=== PATIENT | female | born 1990 | race African-American/Black ===

== ENCOUNTER 2018-01-26 04:26 | Emergency (ER) | payer MEDICAID, OTHER ==
[~2018-01-26] VITALS: Ht 160 cm; Wt 90.9 kg
[2018-01-26 04:58] LABS: GLUCOSE,POINT OF CARE 117 MG/DL (70-110)
[2018-01-26 05:55] LABS: AMPHET/METH SCREEN,URINE NEGATIVE (NEGATIVE); BARBITURATE SCREEN, URINE NEGATIVE (NEGATIVE); BENZODIAZEPINES SCREEN,URINE NEGATIVE (NEGATIVE); CANNABINOID SCREEN,URINE POSITIVE (NEGATIVE); COCAINE SCREEN,URINE NEGATIVE (NEGATIVE); METHADONE SCREEN, URINE NEGATIVE (NEGATIVE); OPIATE SCREEN,URINE NEGATIVE (NEGATIVE); PHENCYCLIDINE SCREEN,URINE NEGATIVE (NEGATIVE)
[2018-01-26] MEDS ORDERED: SODIUM CHLORIDE 0.9% 1,000 ML IV ONE (08:00)
[2018-01-26 08:33] LABS: BASOPHILS % (AUTO) 0.9 % (0.0-2.0); EOSINOPHILS % (AUTO) 0.1 % (1.0-6.0); HEMATOCRIT 40.1 % (36-46); HEMOGLOBIN 13.2 g/dL (12.0-16.0); LYMPHOCYTES # (AUTO) 1.6 K/uL (1.0-4.8); LYMPHOCYTES % (AUTO) 22.6 % (22.0-44.0); MEAN CORPUSCULAR HEMOGLOBIN 27.5 pg (26.0-34.0); MEAN CORPUSCULAR VOLUME 83 fL (80-100); MONOCYTES # (AUTO) 0.3 K/uL (0.1-1.0); MONOCYTES % (AUTO) 5.1 % (2.0-9.0); NEUTROPHILS # (AUTO) 4.9 K/uL (1.8-7.7); NEUTROPHILS % (AUTO) 71.3 % (40.0-70.0); PLATELET COUNT (AUTO) 316 K/uL (150-450); RED BLOOD CELL COUNT(AUTO) 4.82 MIL/uL (4.00-5.20); RED CELL DISTRIBUTION WIDTH 14.3 % (11.5-14.5)
[2018-01-26 08:42] LABS: ANION GAP 11 mmol/L (8-16); CALCIUM, TOTAL 9.4 mg/dL (8.8-10.5); CARBON DIOXIDE 25 mmol/L (22-29); CHLORIDE 105 mmol/L (98-107); CREATININE 0.63 mg/dL (0.60-1.30); GLOMERULAR FILTR. RATE CALC > 60 mL/min (>60); GLUCOSE,RANDOM 102 mg/dL (70-110); POTASSIUM 4.5 mmol/L (3.5-5.1); SODIUM SERUM 141 mmol/L (136-145); UREA NITROGEN, BLOOD 9 mg/dL (7-18)
[2018-01-26 08:48] LABS: ALANINE AMINOTRANSFERASE 25 U/L (12-78); ALKALINE PHOSPHATASE 74 U/L (46-116); ASPARTATE AMINOTRANSFERASE 19 U/L (15-37); BILIRUBIN,TOTAL 0.4 mg/dL (0.1-1.0); TOTAL PROTEIN, SERUM 7.3 g/dL (6.4-8.2)
[2018-01-26] MEDS ORDERED: LORazepam 2 MG/ML VIAL IVP ONE (09:30)
[2018-01-26] MEDS ORDERED: KETOROLAC TROMETHAMINE 30 MG/ML VIAL IVP ONE (09:30)
[2018-01-26 12:00] VITALS: BP 118/72
== END 2018-01-26 12:10 | disposition home or self-care (01) ==
LOC: EMS 04:27
DX: F41.9 Anxiety disorder, unspecified (principal)
CPT/HCPCS: 36415; 80053; 80307; 82962; 84484; 85025; 85379; 96361; 96374; 96375; 99284; J1885; J2060; J7030

== ENCOUNTER 2018-01-26 18:32 | Emergency (ER) | payer MEDICAID ==
[~2018-01-26] VITALS: Ht 160 cm; Wt 86.0 kg
[2018-01-26] MEDS ORDERED: PB/HYOSCY/ATR/SCOP/LIDO/MAALOX 55 ML BOTTLE PO ONE (19:15)
[2018-01-26] MEDS ORDERED: ONDANSETRON HCL 4 MG TABLET PO ONE (19:45)
[2018-01-26 20:59] VITALS: BP 128/89
== END 2018-01-26 20:55 | disposition home or self-care (01) ==
LOC: EMS 18:33
DX: K21.9 Gastro-esophageal reflux disease without esophagitis (principal); R07.9 Chest pain, unspecified
CPT/HCPCS: 93005; 99283; Q0162; Z7610

== ENCOUNTER 2018-01-27 23:03 | Emergency (ER) | payer MEDICAID ==
[~2018-01-27] VITALS: Ht 152.4 cm; Wt 86.4 kg
[2018-01-28] MEDS ORDERED: IBUPROFEN 600 MG TABLET PO ONE (01:45)
[2018-01-28 01:56] VITALS: BP 129/83
== END 2018-01-28 02:04 | disposition home or self-care (01) ==
LOC: EMS 23:04
DX: R07.9 Chest pain, unspecified (principal); F41.9 Anxiety disorder, unspecified
CPT/HCPCS: 93005; 99284

== ENCOUNTER 2018-01-31 18:02 | Inpatient (IN) | payer MEDICAID ==
[~2018-01-31] VITALS: Ht 160 cm; Wt 108.7 kg
[2018-01-31] MEDS ORDERED: BACL10TA PO (18:26)
[2018-01-31] MEDS ORDERED: RANI300T4 PO (18:26)
[2018-01-31] MEDS ORDERED: PANT40TA25 PO (18:26)
[2018-01-31] MEDS ORDERED: HYD50 PO (18:26)
[2018-01-31] MEDS ORDERED: ATEN25TA PO (18:26)
[2018-01-31] MEDS ORDERED: ASPIRIN 81 MG CHEWABLE TABLET PO ONE (18:45)
[2018-01-31] MEDS ORDERED: NITROGLYCERIN 2% (1 GM=INCH) PACKET TP ONE (18:45)
[2018-01-31 19:22] LABS: BASOPHILS % (AUTO) 1.1 % (0.0-2.0); EOSINOPHILS % (AUTO) 1.9 % (1.0-6.0); HEMATOCRIT 42.8 % (36-46); HEMOGLOBIN 14.3 g/dL (12.0-16.0); LYMPHOCYTES # (AUTO) 2.3 K/uL (1.0-4.8); LYMPHOCYTES % (AUTO) 37.1 % (22.0-44.0); MEAN CORPUSCULAR HEMOGLOBIN 27.8 pg (26.0-34.0); MEAN CORPUSCULAR HGB CONC 33.3 G/dL (31.0-37.0); MEAN CORPUSCULAR VOLUME 83 fL (80-100); MONOCYTES # (AUTO) 0.6 K/uL (0.1-1.0); MONOCYTES % (AUTO) 9.8 % (2.0-9.0); NEUTROPHILS # (AUTO) 3.1 K/uL (1.8-7.7); NEUTROPHILS % (AUTO) 50.1 % (40.0-70.0); PLATELET COUNT (AUTO) 317 K/uL (150-450); RED BLOOD CELL COUNT(AUTO) 5.14 MIL/uL (4.00-5.20); RED CELL DISTRIBUTION WIDTH 14.3 % (11.5-14.5)
[2018-01-31 19:29] LABS: ANION GAP 13 mmol/L (8-16); CALCIUM, TOTAL 9.8 mg/dL (8.8-10.5); CARBON DIOXIDE 25 mmol/L (22-29); CHLORIDE 102 mmol/L (98-107); CREATININE 0.72 mg/dL (0.60-1.30); GLOMERULAR FILTR. RATE CALC > 60 mL/min (>60); GLUCOSE,RANDOM 86 mg/dL (70-110); SODIUM SERUM 140 mmol/L (136-145); UREA NITROGEN, BLOOD 13 mg/dL (7-18)
[2018-01-31 19:53] LABS: ALANINE AMINOTRANSFERASE 25 U/L (12-78); ALBUMIN 4.1 g/dL (3.4-5.0); ALKALINE PHOSPHATASE 80 U/L (46-116); ASPARTATE AMINOTRANSFERASE 18 U/L (15-37); BILIRUBIN,TOTAL 0.4 mg/dL (0.1-1.0); CREATINE KINASE MB 1.3 ng/mL (0-5); CREATINE KINASE, TOTAL 217 U/L (26-192); TOTAL PROTEIN, SERUM 7.7 g/dL (6.4-8.2)
[2018-01-31 19:55] LABS: B-TYPE NATRIURETIC PEPTIDE < 5 pg/mL (0-100)
[2018-01-31] MEDS ORDERED: ONDANSETRON HCL 4 MG/2 ML VIAL IVP PRN (20:00)
[2018-01-31 21:08] VITALS: BP 114/49
[2018-01-31] MEDS: ACETAMINOPHEN 325 MG TABLET PO PRN (21:20)
[2018-01-31] MEDS ORDERED: INFLUENZA VIRUS VACCINE QVS 2017-18 (3YR+)/PF 60 MCG/0.5 ML SYRINGE IM ONE (22:45)
[2018-02-01 00:19] VITALS: BP 101/55
[2018-02-01] MEDS: ACETAMINOPHEN 325 MG TABLET PO PRN (01:10)
[2018-02-01 04:36] VITALS: BP 103/58
[2018-02-01 07:38] VITALS: BP 110/66
== END 2018-02-01 07:30 | disposition left against medical advice (07) | DRG 203 ==
LOC: EMS 18:04 → 5N 20:02
PROVIDERS: ADMIT Family Medicine; ATTEND Family Medicine
DX: R07.9 Chest pain, unspecified (principal); I10 Essential (primary) hypertension; F41.9 Anxiety disorder, unspecified; K21.9 Gastro-esophageal reflux disease without esophagitis; Z53.21 Procedure and treatment not carried out due to patient leaving prior to being seen by health care provider
CPT/HCPCS: 93005; 99285

== ENCOUNTER 2018-06-05 23:24 | Emergency (ER) | payer MEDICAID ==
[~2018-06-05] VITALS: Ht 160 cm; Wt 104.5 kg
[~2018-06-05 23:24] MED LIST: ATEN25TA PO; BACL10TA PO; HYD50 PO; PANT40TA25 PO; RANI300T4 PO
[2018-06-06 04:10] VITALS: BP 120/77
== END 2018-06-06 04:14 | disposition home or self-care (01) ==
LOC: EMS 23:24
DX: F41.9 Anxiety disorder, unspecified (principal); R00.2 Palpitations; I10 Essential (primary) hypertension
CPT/HCPCS: 93005; 99285

== ENCOUNTER 2018-11-19 22:50 | Emergency (ER) | payer MEDICAID ==
[~2018-11-19] VITALS: Ht 160 cm; Wt 90.9 kg
[~2018-11-19 22:50] MED LIST changes: -BACL10TA PO; -HYD50 PO; -PANT40TA25 PO; -RANI300T4 PO
[2018-11-19] MEDS ORDERED: anxiety med PO (23:00)
[2018-11-19] MEDS ORDERED: ETON68IM3 SD (23:00)
[2018-11-19 23:36] LABS: APPEARANCE,URINE CLEAR (CLEAR); BILIRUBIN,URINE NEGATIVE (NEGATIVE); GLUCOSE, URINE (UA) NEGATIVE (NEGATIVE); KETONES,URINE NEGATIVE (NEGATIVE); LEUKOCYTE ESTERASE ,URINE NEGATIVE (NEGATIVE); NITRATE,URINE NEGATIVE (NEGATIVE); OCCULT BLOOD,URINE NEGATIVE (NEGATIVE); PH,URINE 6.5 (5.0-8.0); PROTEIN,URINE NEGATIVE (NEGATIVE)
[2018-11-19 23:43] LABS: EOSINOPHILS % (AUTO) 1.7 % (1.0-6.0); HEMATOCRIT 40.3 % (36-46); HEMOGLOBIN 13.4 g/dL (12.0-16.0); LYMPHOCYTES # (AUTO) 2.5 K/uL (1.0-4.8); LYMPHOCYTES % (AUTO) 34.1 % (22.0-44.0); MEAN CORPUSCULAR HEMOGLOBIN 28.2 pg (26.0-34.0); MEAN CORPUSCULAR HGB CONC 33.3 G/dL (31.0-37.0); MEAN CORPUSCULAR VOLUME 85 fL (80-100); MONOCYTES # (AUTO) 0.6 K/uL (0.1-1.0); MONOCYTES % (AUTO) 8.1 % (2.0-9.0); NEUTROPHILS % (AUTO) 55.1 % (40.0-70.0); PLATELET COUNT (AUTO) 286 K/uL (150-450); RED BLOOD CELL COUNT(AUTO) 4.77 MIL/uL (4.00-5.20); RED CELL DISTRIBUTION WIDTH 14.2 % (11.5-14.5)
[2018-11-19] MEDS ORDERED: KETOROLAC TROMETHAMINE 60 MG/2 ML VIAL IM ONE (23:45)
[2018-11-19 23:52] LABS: ANION GAP 7 mmol/L (8-16); CALCIUM, TOTAL 8.8 mg/dL (8.8-10.5); CARBON DIOXIDE 28 mmol/L (22-29); CHLORIDE 103 mmol/L (98-107); GLOMERULAR FILTR. RATE CALC > 60 mL/min (>60); GLUCOSE,RANDOM 95 mg/dL (70-110); POTASSIUM 3.9 mmol/L (3.5-5.1); SODIUM SERUM 138 mmol/L (136-145); UREA NITROGEN, BLOOD 12 mg/dL (7-18)
[2018-11-19 23:56] LABS: INR 0.9 (0.9-1.1); PROTHROMBIN TIME 9.8 SEC (9.4-11.6)
[2018-11-20 00:08] LABS: B-TYPE NATRIURETIC PEPTIDE 6 pg/mL (0-100)
[2018-11-20 00:17] LABS: ALANINE AMINOTRANSFERASE 28 U/L (12-78); ALKALINE PHOSPHATASE 81 U/L (46-116); ASPARTATE AMINOTRANSFERASE 26 U/L (15-37); BILIRUBIN,TOTAL 0.3 mg/dL (0.1-1.0); CREATINE KINASE, TOTAL ONLY 514 U/L (26-192); TOTAL PROTEIN, SERUM 7.4 g/dL (6.4-8.2)
[2018-11-20] MEDS ORDERED: LORazepam 1 MG TABLET PO ONE (01:00)
[2018-11-20 01:45] VITALS: BP 115/72
== END 2018-11-20 01:58 | disposition home or self-care (01) ==
LOC: EMS 22:51
DX: R07.89 Other chest pain (principal); F41.9 Anxiety disorder, unspecified; H92.02 Otalgia, left ear; J06.9 Acute upper respiratory infection, unspecified
CPT/HCPCS: 36415; 71045; 80053; 81003; 81025; 82550; 83880; 84484; 85025; 85379; 85610; 85730; 87430; 93005; 96372; 99285; J1885

== ENCOUNTER 2019-12-14 15:09 | Emergency (ER) | payer MEDICAID ==
[~2019-12-14] VITALS: Ht 157.5 cm; Wt 103.2 kg
[~2019-12-14 15:09] MED LIST changes: -ATEN25TA PO; +ETON68IM3 SD; +anxiety med PO
[2019-12-14] MEDS ORDERED: ACETAMINOPHEN 500 MG TABLET PO ONE (16:45)
[2019-12-14] MEDS ORDERED: SODIUM CHLORIDE 0.9% 1,000 ML IV ONE (16:45)
[2019-12-14 17:05] LABS: BASOPHILS % (AUTO) 1.1 % (0.0-2.0); EOSINOPHILS % (AUTO) 0.7 % (1.0-6.0); HEMATOCRIT 38.7 % (36-46); HEMOGLOBIN 12.7 g/dL (12.0-16.0); LYMPHOCYTES # (AUTO) 0.5 K/uL (1.0-4.8); LYMPHOCYTES % (AUTO) 11.6 % (22.0-44.0); MEAN CORPUSCULAR HEMOGLOBIN 28.5 pg (26.0-34.0); MEAN CORPUSCULAR HGB CONC 32.9 G/dL (31.0-37.0); MEAN CORPUSCULAR VOLUME 87 fL (80-100); MONOCYTES # (AUTO) 0.6 K/uL (0.1-1.0); MONOCYTES % (AUTO) 14.4 % (2.0-9.0); NEUTROPHILS # (AUTO) 3.2 K/uL (1.8-7.7); NEUTROPHILS % (AUTO) 72.2 % (40.0-70.0); PLATELET COUNT (AUTO) 255 K/uL (150-450); RED BLOOD CELL COUNT(AUTO) 4.46 MIL/uL (4.00-5.20); RED CELL DISTRIBUTION WIDTH 13.8 % (11.5-14.5)
[2019-12-14 17:24] LABS: ANION GAP 10 mmol/L (8-16); CALCIUM, TOTAL 8.8 mg/dL (8.8-10.5); CARBON DIOXIDE 24 mmol/L (22-29); CHLORIDE 102 mmol/L (98-107); CREATININE 0.64 mg/dL (0.60-1.30); GLOMERULAR FILTR. RATE CALC > 60 mL/min (>60); GLUCOSE,RANDOM 86 mg/dL (70-110); POTASSIUM 3.6 mmol/L (3.5-5.1); SODIUM SERUM 136 mmol/L (136-145); UREA NITROGEN, BLOOD 7 mg/dL (7-18)
[2019-12-14 18:15] VITALS: BP 138/78
== END 2019-12-14 18:32 | disposition home or self-care (01) ==
LOC: EMS 15:11
DX: B34.9 Viral infection, unspecified (principal); R07.89 Other chest pain; F41.9 Anxiety disorder, unspecified; Z79.899 Other long term (current) drug therapy
CPT/HCPCS: 36415; 71045; 80048; 84484; 85025; 85379; 93005; 99285; J7030

== ENCOUNTER 2020-02-10 19:26 | Emergency (ER) | payer MEDICAID ==
[~2020-02-10] VITALS: Ht 160 cm; Wt 104.5 kg
[~2020-02-10 19:26] MED LIST changes: -anxiety med PO
[2020-02-10 20:30] VITALS: BP 145/85
== END 2020-02-10 21:32 | disposition home or self-care (01) ==
LOC: EMS 19:28
DX: A60.04 Herpesviral vulvovaginitis (principal); F41.9 Anxiety disorder, unspecified

== ENCOUNTER 2022-01-04 13:49 | Emergency (ER) | payer MEDICAID ==
[~2022-01-04] VITALS: Ht 160 cm; Wt 90.9 kg
[2022-01-04 15:30] LABS: BASOPHILS % (AUTO) 0.8 % (0.0-2.0); EOSINOPHILS % (AUTO) 3.4 % (1.0-6.0); LYMPHOCYTES # (AUTO) 2.6 K/uL (1.0-4.8); LYMPHOCYTES % (AUTO) 48.6 % (22.0-44.0); MEAN CORPUSCULAR HEMOGLOBIN 24.4 pg (26.0-34.0); MEAN CORPUSCULAR HGB CONC 31.5 G/dL (31.0-37.0); MEAN CORPUSCULAR VOLUME 77 fL (80-100); MONOCYTES # (AUTO) 0.4 K/uL (0.1-1.0); MONOCYTES % (AUTO) 7.6 % (2.0-9.0); NEUTROPHILS # (AUTO) 2.1 K/uL (1.8-7.7); NEUTROPHILS % (AUTO) 39.6 % (40.0-70.0); PLATELET COUNT (AUTO) 439 K/uL (150-450); RED BLOOD CELL COUNT(AUTO) 4.52 MIL/uL (4.00-5.20); RED CELL DISTRIBUTION WIDTH 20.4 % (11.5-14.5)
[2022-01-04 15:40] LABS: ANION GAP 11 mmol/L (8-16); CALCIUM, TOTAL 9.2 mg/dL (8.8-10.5); CARBON DIOXIDE 25 mmol/L (22-29); CHLORIDE 104 mmol/L (98-107); CREATININE 0.32 mg/dL (0.60-1.30); GLUCOSE,RANDOM 87 mg/dL (70-110); POTASSIUM 3.7 mmol/L (3.5-5.1); SODIUM SERUM 140 mmol/L (136-145); UREA NITROGEN, BLOOD 7 mg/dL (7-18)
[2022-01-04 15:42] LABS: GLOMERULAR FILTR. RATE CALC > 60 mL/min (>60)
[2022-01-04 15:46] LABS: ALANINE AMINOTRANSFERASE 16 U/L (12-78); ALBUMIN 2.9 g/dL (3.4-5.0); ALKALINE PHOSPHATASE 63 U/L (46-116); ASPARTATE AMINOTRANSFERASE 10 U/L (15-37); BILIRUBIN,TOTAL 0.4 mg/dL (0.1-1.0); TOTAL PROTEIN, SERUM 6.3 g/dL (6.4-8.2)
[2022-01-04 15:50] LABS: B-TYPE NATRIURETIC PEPTIDE 274 pg/mL (0-100)
[2022-01-04 17:26] VITALS: BP 102/59
== END 2022-01-04 18:32 | disposition home or self-care (01) ==
LOC: EMS 13:53
DX: R60.0 Localized edema (principal); R79.89 Other specified abnormal findings of blood chemistry; F41.9 Anxiety disorder, unspecified; K21.9 Gastro-esophageal reflux disease without esophagitis; Z79.899 Other long term (current) drug therapy
CPT/HCPCS: 80053; 83880; 85025; 93970; 99284

== ENCOUNTER 2022-06-22 09:31 | Inpatient (IN) | payer MEDICAID ==
[~2022-06-22] VITALS: Ht 160 cm; Wt 104.7 kg
[~2022-06-22 09:31] MED LIST changes: -ETON68IM3 SD; +ETON68IM4 SD
[2022-06-22 09:47] LABS: COVID AG,FIA SOURCE NASOPHARYNGEAL
[2022-06-22 09:49] LABS: BASOPHILS % (AUTO) 0.6 % (0.0-2.0); EOSINOPHILS % (AUTO) 1.6 % (1.0-6.0); HEMATOCRIT 34.9 % (36-46); HEMOGLOBIN 11.2 g/dL (12.0-16.0); LYMPHOCYTES # (AUTO) 2.6 K/uL (1.0-4.8); LYMPHOCYTES % (AUTO) 30.8 % (22.0-44.0); MEAN CORPUSCULAR HEMOGLOBIN 26.1 pg (26.0-34.0); MEAN CORPUSCULAR HGB CONC 32.1 G/dL (31.0-37.0); MEAN CORPUSCULAR VOLUME 81 fL (80-100); MONOCYTES # (AUTO) 0.4 K/uL (0.1-1.0); MONOCYTES % (AUTO) 4.7 % (2.0-9.0); NEUTROPHILS # (AUTO) 5.2 K/uL (1.8-7.7); NEUTROPHILS % (AUTO) 62.3 % (40.0-70.0); PLATELET COUNT (AUTO) 306 K/uL (150-450); RED CELL DISTRIBUTION WIDTH 16.6 % (11.5-14.5)
[2022-06-22 09:57] LABS: CARBON DIOXIDE 23 mmol/L (22-29); CHLORIDE 101 mmol/L (98-107); CREATININE 0.51 mg/dL (0.60-1.30); GLUCOSE,RANDOM 127 mg/dL (70-110); POTASSIUM 3.7 mmol/L (3.5-5.1); UREA NITROGEN, BLOOD 8 mg/dL (7-18)
[2022-06-22 09:59] LABS: GLOMERULAR FILTR. RATE CALC > 60 mL/min (>60)
[2022-06-22 10:05] LABS: B-TYPE NATRIURETIC PEPTIDE 32 pg/mL (0-100)
[2022-06-22 10:06] LABS: LACTIC ACID 1.1 mmol/L (0.4-2.0)
[2022-06-22 10:12] LABS: AMMONIA 19 umol/L (11-32)
[2022-06-22 10:14] LABS: SALICYLATE 1.2 mg/dL (2.8-20.0)
[2022-06-22 10:22] LABS: ACETAMINOPHEN < 2 mcg/mL (10-30); ALANINE AMINOTRANSFERASE 83 U/L (12-78); ALBUMIN 2.9 g/dL (3.4-5.0); ALKALINE PHOSPHATASE 87 U/L (46-116); ANION GAP 11 mmol/L (8-16); ASPARTATE AMINOTRANSFERASE 84 U/L (15-37); BILIRUBIN,TOTAL 0.4 mg/dL (0.1-1.0); CREATINE KINASE, TOTAL ONLY 134 U/L (26-192); SODIUM SERUM 135 mmol/L (136-145); TOTAL PROTEIN, SERUM 6.5 g/dL (6.4-8.2)
[2022-06-22 11:01] LABS: APPEARANCE,URINE HAZY (CLEAR); BILIRUBIN,URINE NEGATIVE (NEGATIVE); GLUCOSE, URINE (UA) NEGATIVE (NEGATIVE); KETONES,URINE NEGATIVE (NEGATIVE); LEUKOCYTE ESTERASE ,URINE LARGE (NEGATIVE); NITRATE,URINE NEGATIVE (NEGATIVE); OCCULT BLOOD,URINE NEGATIVE (NEGATIVE); PH,URINE 6.5 (5.0-8.0); PROTEIN,URINE 300-600,SEE CONFIRM mg/dL (NEGATIVE); SPECIFIC GRAVITIY, URINE 1.022 (1.003-1.030)
[2022-06-22 11:04] LABS: SULFOSALICYLIC ACID,URINE 3+ (Negative)
[2022-06-22 11:05] LABS: BACTERIA,URINE Many /HPF (None Seen); RBC,URINE None Seen /HPF (0-2); SQUAMOUS EPITHELIAL CELL,UR Few /LPF (None Seen); WBC,URINE 51-100 /HPF (0-5)
[2022-06-22 11:07] LABS: AMPHET/METH SCREEN,URINE NEGATIVE (NEGATIVE); BARBITURATE SCREEN, URINE NEGATIVE (NEGATIVE); BENZODIAZEPINES SCREEN,URINE NEGATIVE (NEGATIVE); CANNABINOID SCREEN,URINE NEGATIVE (NEGATIVE); COCAINE SCREEN,URINE NEGATIVE (NEGATIVE); METHADONE SCREEN, URINE NEGATIVE (NEGATIVE); OPIATE SCREEN,URINE NEGATIVE (NEGATIVE)
[2022-06-22 11:08] LABS: PHENCYCLIDINE SCREEN,URINE NEGATIVE (NEGATIVE)
[2022-06-22] MEDS ORDERED: CefTRIAXone 1 GM/DEXTROSE 50 ML IV ONE (11:45)
[2022-06-22] MEDS ORDERED: MIDO2.5T PO (11:47)
[2022-06-22] MEDS ORDERED: FAMO20TA8 PO (11:47)
[2022-06-22] MEDS ORDERED: GABA600T10 PO (11:47)
[2022-06-22] MEDS ORDERED: ESCI10 PO (11:47)
[2022-06-22] MEDS ORDERED: MULT15TA3 PO (11:47)
[2022-06-22] MEDS ORDERED: BACL20TA PO (11:47)
[2022-06-22] MEDS ORDERED: OXYB5TAB20 PO (11:47)
[2022-06-22] MEDS ORDERED: ACETAMINOPHEN 325 MG TABLET PO PRN (12:15)
[2022-06-22] MEDS ORDERED: ONDANSETRON HCL 4 MG/2 ML VIAL IVP PRN (12:15)
[2022-06-22] MEDS ORDERED: 0.9% SODIUM CHLORIDE 10 ML SYRINGE IVP PRN ×2 (12:15→14:00)
[2022-06-22] MEDS ORDERED: BISACODYL 10 MG RECTAL RECTAL SUPPOSITORY PR PRN (14:00)
[2022-06-22] MEDS: SODIUM CHLORIDE 0.9% 1,000 ML IV SCH (14:00)
[2022-06-22] MEDS ORDERED: HEPARIN SODIUM,PORCINE 5,000 UNITS/ML VIAL IVP ONE (14:00)
[2022-06-22] MEDS ORDERED: HEPARIN SODIUM,PORCINE 5,000 UNITS/ML VIAL IVP PRN ×2 (14:00)
[2022-06-22] MEDS ORDERED: IPRATROPIUM BROMIDE 0.5 MG/2.5 ML NEB SOLUTION NEB PRN (14:00)
[2022-06-22] MEDS ORDERED: DOCUSATE SODIUM 100 MG CAPSULE PO PRN (14:00)
[2022-06-22] MEDS ORDERED: ALBUTEROL SULFATE 2.5 MG/0.5 ML NEB SOLUTION NEB PRN (14:00)
[2022-06-22 14:54] LABS: PROTHROMBIN TIME 10.9 SEC (9.4-11.6)
[2022-06-22 15:22] VITALS: BP 108/74
[2022-06-22] MEDS: OXYBUTYNIN CHLORIDE 5 MG TABLET PO SCH ×2 (15:25→20:11)
[2022-06-22] MEDS: PANTOPRAZOLE SODIUM 40 MG DR TABLET PO SCH (15:25)
[2022-06-22] MEDS: GABAPENTIN 300 MG CAPSULE PO SCH ×2 (15:25→20:11)
[2022-06-22] MEDS: ASPIRIN 81 MG CHEWABLE TABLET PO SCH (15:25)
[2022-06-22] MEDS: HEPARIN SODIUM 25000 UNITS/D5W 250 ML IV PRN (16:58)
[2022-06-22 20:16] VITALS: BP 94/50
[2022-06-23 00:12] VITALS: BP 95/69
[2022-06-23] MEDS: ONDANSETRON HCL 4 MG/2 ML VIAL IVP PRN ×3 (01:12→14:30)
[2022-06-23 04:56] VITALS: BP 98/55
[2022-06-23 06:33] LABS: BASOPHILS % (AUTO) 0.7 % (0.0-2.0); HEMATOCRIT 32.9 % (36-46); HEMOGLOBIN 10.8 g/dL (12.0-16.0); LYMPHOCYTES # (AUTO) 2.7 K/uL (1.0-4.8); MEAN CORPUSCULAR HEMOGLOBIN 26.7 pg (26.0-34.0); MEAN CORPUSCULAR HGB CONC 32.8 G/dL (31.0-37.0); MEAN CORPUSCULAR VOLUME 81 fL (80-100); MONOCYTES # (AUTO) 0.5 K/uL (0.1-1.0); MONOCYTES % (AUTO) 5.9 % (2.0-9.0); NEUTROPHILS # (AUTO) 4.6 K/uL (1.8-7.7); NEUTROPHILS % (AUTO) 57.4 % (40.0-70.0); PLATELET COUNT (AUTO) 316 K/uL (150-450); RED BLOOD CELL COUNT(AUTO) 4.05 MIL/uL (4.00-5.20); RED CELL DISTRIBUTION WIDTH 16.7 % (11.5-14.5)
[2022-06-23] MEDS: SODIUM CHLORIDE 0.9% 1,000 ML IV SCH (06:49)
[2022-06-23 06:56] LABS: POTASSIUM 3.9 mmol/L (3.5-5.1); SODIUM SERUM 141 mmol/L (136-145)
[2022-06-23 06:57] LABS: ALANINE AMINOTRANSFERASE 52 U/L (12-78); ALBUMIN 2.8 g/dL (3.4-5.0); ALKALINE PHOSPHATASE 78 U/L (46-116); ANION GAP 13 mmol/L (8-16); ASPARTATE AMINOTRANSFERASE 32 U/L (15-37); BILIRUBIN,TOTAL 0.4 mg/dL (0.1-1.0); CARBON DIOXIDE 25 mmol/L (22-29); CHLORIDE 103 mmol/L (98-107); CHOL/HDL RATIO 3.7 (3.9-5.7); CHOLESTEROL 157 mg/dL (131-200); CREATININE 0.43 mg/dL (0.60-1.30); GLUCOSE,RANDOM 81 mg/dL (70-110); HDL CHOLESTEROL 42 mg/dL (40-60); LDL CHOL (CALC.) 99 mg/dL (0-130); TOTAL PROTEIN, SERUM 6.2 g/dL (6.4-8.2); TRIGLYCERIDES 80 mg/dL (15-150); UREA NITROGEN, BLOOD 7 mg/dL (7-18)
[2022-06-23 06:59] LABS: GLOMERULAR FILTR. RATE CALC > 60 mL/min (>60)
[2022-06-23 07:47] VITALS: BP 112/68
[2022-06-23] MEDS: ASPIRIN 81 MG CHEWABLE TABLET PO SCH (07:59)
[2022-06-23] MEDS: MULTIVITAMINS WITH MINERALS, THERAPEUTIC TABLET PO SCH (07:59)
[2022-06-23] MEDS: GABAPENTIN 300 MG CAPSULE PO SCH ×3 (07:59→20:48)
[2022-06-23] MEDS: OXYBUTYNIN CHLORIDE 5 MG TABLET PO SCH ×3 (07:59→20:48)
[2022-06-23] MEDS: PANTOPRAZOLE SODIUM 40 MG DR TABLET PO SCH (07:59)
[2022-06-23] MEDS ORDERED: GADOTERATE MEGLUMINE 10 MMOL/20 ML VIAL IVP ONE (10:44)
[2022-06-23] MEDS: CefTRIAXone 1 GM/DEXTROSE 50 ML IV SCH (12:50)
[2022-06-23 17:12] VITALS: BP 99/68
[2022-06-23 20:47] VITALS: BP 91/56
[2022-06-24 00:23] VITALS: BP 94/53
[2022-06-24] MEDS: SODIUM CHLORIDE 0.9% 1,000 ML IV SCH ×3 (00:31→23:41)
[2022-06-24 04:51] VITALS: BP 91/49
[2022-06-24 06:07] LABS: HEPATITIS C AB (EIA) <0.1 s/co ratio (0.0-0.9)
[2022-06-24 06:39] LABS: BASOPHILS % (AUTO) 0.8 % (0.0-2.0); EOSINOPHILS % (AUTO) 4.6 % (1.0-6.0); HEMATOCRIT 30.6 % (36-46); HEMOGLOBIN 10.1 g/dL (12.0-16.0); LYMPHOCYTES # (AUTO) 3.3 K/uL (1.0-4.8); LYMPHOCYTES % (AUTO) 45.6 % (22.0-44.0); MEAN CORPUSCULAR HEMOGLOBIN 26.7 pg (26.0-34.0); MEAN CORPUSCULAR HGB CONC 33.1 G/dL (31.0-37.0); MEAN CORPUSCULAR VOLUME 81 fL (80-100); MONOCYTES # (AUTO) 0.6 K/uL (0.1-1.0); MONOCYTES % (AUTO) 8.5 % (2.0-9.0); NEUTROPHILS % (AUTO) 40.5 % (40.0-70.0); PLATELET COUNT (AUTO) 294 K/uL (150-450); RED CELL DISTRIBUTION WIDTH 16.8 % (11.5-14.5)
[2022-06-24 06:55] LABS: ANION GAP 11 mmol/L (8-16); CARBON DIOXIDE 25 mmol/L (22-29); CHLORIDE 104 mmol/L (98-107); CREATININE 0.44 mg/dL (0.60-1.30); GLUCOSE,RANDOM 94 mg/dL (70-110); POTASSIUM 4.1 mmol/L (3.5-5.1); SODIUM SERUM 140 mmol/L (136-145); UREA NITROGEN, BLOOD 8 mg/dL (7-18)
[2022-06-24 07:25] LABS: GLOMERULAR FILTR. RATE CALC > 60 mL/min (>60)
[2022-06-24 07:30] VITALS: BP 105/57
[2022-06-24] MEDS: ASPIRIN 81 MG CHEWABLE TABLET PO SCH (08:16)
[2022-06-24] MEDS: GABAPENTIN 300 MG CAPSULE PO SCH ×3 (08:16→20:46)
[2022-06-24] MEDS: PANTOPRAZOLE SODIUM 40 MG DR TABLET PO SCH (08:16)
[2022-06-24] MEDS: HEPARIN SODIUM 25000 UNITS/D5W 250 ML IV PRN ×2 (08:16→23:59)
[2022-06-24] MEDS: MULTIVITAMINS WITH MINERALS, THERAPEUTIC TABLET PO SCH (08:16)
[2022-06-24] MEDS: ATORVASTATIN CALCIUM 40 MG TABLET PO SCH (08:17)
[2022-06-24] MEDS: OXYBUTYNIN CHLORIDE 5 MG TABLET PO SCH ×3 (08:17→20:46)
[2022-06-24] MEDS: ACETAMINOPHEN 325 MG TABLET PO PRN (09:54)
[2022-06-24] MEDS: CefTRIAXone 1 GM/DEXTROSE 50 ML IV SCH (11:36)
[2022-06-24] MEDS ORDERED: IOHEXOL 350 MG/ML 75 ML VIAL ONE ×3 (12:41→22:22)
[2022-06-24] MEDS ORDERED: SODIUM CHLORIDE 0.9% 0 ML ONE (12:42)
[2022-06-24] MEDS ORDERED: HEPARIN SODIUM,PORCINE 5,000 UNITS/ML VIAL SQ SCH (16:00)
[2022-06-24] MEDS: BACLOFEN 10 MG TABLET PO SCH ×2 (16:53→20:46)
[2022-06-24 20:00] VITALS: BP 115/79
[2022-06-24] MEDS ORDERED: SODIUM CHLORIDE 0.9% 100 ML ONE ×2 (21:39→22:22)
[2022-06-24] MEDS ORDERED: HEPARIN SODIUM,PORCINE 5,000 UNITS/ML VIAL IVP PRN ×2 (23:30)
[2022-06-25] VITALS (7 sets, daily range): BP systolic 86–137; BP diastolic 44–66
[2022-06-25 06:44] LABS: BASOPHILS % (AUTO) 0.6 % (0.0-2.0); EOSINOPHILS % (AUTO) 3.8 % (1.0-6.0); HEMATOCRIT 32.2 % (36-46); HEMOGLOBIN 10.5 g/dL (12.0-16.0); LYMPHOCYTES # (AUTO) 3.3 K/uL (1.0-4.8); LYMPHOCYTES % (AUTO) 48.6 % (22.0-44.0); MEAN CORPUSCULAR HEMOGLOBIN 26.6 pg (26.0-34.0); MEAN CORPUSCULAR HGB CONC 32.7 G/dL (31.0-37.0); MEAN CORPUSCULAR VOLUME 81 fL (80-100); MONOCYTES # (AUTO) 0.5 K/uL (0.1-1.0); MONOCYTES % (AUTO) 7.3 % (2.0-9.0); NEUTROPHILS # (AUTO) 2.7 K/uL (1.8-7.7); NEUTROPHILS % (AUTO) 39.7 % (40.0-70.0); PLATELET COUNT (AUTO) 315 K/uL (150-450); RED BLOOD CELL COUNT(AUTO) 3.96 MIL/uL (4.00-5.20); RED CELL DISTRIBUTION WIDTH 16.5 % (11.5-14.5)
[2022-06-25 07:03] LABS: ANION GAP 7 mmol/L (8-16); CALCIUM, TOTAL 9.1 mg/dL (8.8-10.5); CARBON DIOXIDE 27 mmol/L (22-29); CHLORIDE 106 mmol/L (98-107); CREATININE 0.46 mg/dL (0.60-1.30); GLUCOSE,RANDOM 97 mg/dL (70-110); POTASSIUM 4.4 mmol/L (3.5-5.1); SODIUM SERUM 140 mmol/L (136-145); UREA NITROGEN, BLOOD 6 mg/dL (7-18)
[2022-06-25 07:21] LABS: GLOMERULAR FILTR. RATE CALC > 60 mL/min (>60)
[2022-06-25] MEDS: HEPARIN SODIUM 25000 UNITS/D5W 250 ML IV PRN (08:24)
[2022-06-25] MEDS: ASPIRIN 81 MG CHEWABLE TABLET PO SCH (08:26)
[2022-06-25] MEDS: MULTIVITAMINS WITH MINERALS, THERAPEUTIC TABLET PO SCH (08:26)
[2022-06-25] MEDS: GABAPENTIN 300 MG CAPSULE PO SCH ×3 (08:26→20:21)
[2022-06-25] MEDS: PANTOPRAZOLE SODIUM 40 MG DR TABLET PO SCH (08:28)
[2022-06-25] MEDS: BACLOFEN 10 MG TABLET PO SCH ×4 (08:28→20:21)
[2022-06-25] MEDS: ESCITALOPRAM OXALATE 10 MG TABLET PO SCH (08:28)
[2022-06-25] MEDS: OXYBUTYNIN CHLORIDE 5 MG TABLET PO SCH ×3 (08:29→20:21)
[2022-06-25] MEDS: ATORVASTATIN CALCIUM 40 MG TABLET PO SCH (08:31)
[2022-06-25] MEDS: APIXABAN 5 MG TABLET PO SCH ×2 (12:46→20:21)
[2022-06-25] MEDS: CefTRIAXone 1 GM/DEXTROSE 50 ML IV SCH (12:47)
[2022-06-25] MEDS: SODIUM CHLORIDE 0.9% 1,000 ML IV SCH (20:20)
[2022-06-25] MEDS: BENZOCAINE/RESORCINOL 30 GM CREAM TP PRN (20:21)
[2022-06-25 21:43] LABS: APPEARANCE,URINE CLEAR (CLEAR); BILIRUBIN,URINE NEGATIVE (NEGATIVE); GLUCOSE, URINE (UA) NEGATIVE (NEGATIVE); KETONES,URINE NEGATIVE (NEGATIVE); LEUKOCYTE ESTERASE ,URINE TRACE (NEGATIVE); NITRATE,URINE NEGATIVE (NEGATIVE); OCCULT BLOOD,URINE TRACE (NEGATIVE); PH,URINE 6.5 (5.0-8.0); PROTEIN,URINE 30-70 mg/dL (NEGATIVE); SPECIFIC GRAVITIY, URINE 1.027 (1.003-1.030)
[2022-06-25 21:52] LABS: BACTERIA,URINE None Seen /HPF (None Seen); RBC,URINE 0-2 /HPF (0-2); WBC,URINE 0-2 /HPF (0-5)
[2022-06-26 04:37] VITALS: BP 109/75
[2022-06-26] MEDS: BENZOCAINE/RESORCINOL 30 GM CREAM TP PRN (05:08)
[2022-06-26] MEDS: ACETAMINOPHEN 325 MG TABLET PO PRN (05:09)
[2022-06-26 06:39] LABS: BASOPHILS % (AUTO) 0.7 % (0.0-2.0); EOSINOPHILS % (AUTO) 3.6 % (1.0-6.0); HEMATOCRIT 30.6 % (36-46); HEMOGLOBIN 9.9 g/dL (12.0-16.0); LYMPHOCYTES % (AUTO) 31.7 % (22.0-44.0); MEAN CORPUSCULAR HEMOGLOBIN 26.5 pg (26.0-34.0); MEAN CORPUSCULAR HGB CONC 32.2 G/dL (31.0-37.0); MEAN CORPUSCULAR VOLUME 82 fL (80-100); MONOCYTES # (AUTO) 0.5 K/uL (0.1-1.0); MONOCYTES % (AUTO) 8.5 % (2.0-9.0); NEUTROPHILS # (AUTO) 3.5 K/uL (1.8-7.7); NEUTROPHILS % (AUTO) 55.5 % (40.0-70.0); PLATELET COUNT (AUTO) 295 K/uL (150-450); RED BLOOD CELL COUNT(AUTO) 3.72 MIL/uL (4.00-5.20); RED CELL DISTRIBUTION WIDTH 16.5 % (11.5-14.5)
[2022-06-26 06:48] LABS: ANION GAP 11 mmol/L (8-16); CALCIUM, TOTAL 8.7 mg/dL (8.8-10.5); CARBON DIOXIDE 26 mmol/L (22-29); CHLORIDE 108 mmol/L (98-107); CREATININE 0.46 mg/dL (0.60-1.30); GLUCOSE,RANDOM 101 mg/dL (70-110); POTASSIUM 3.8 mmol/L (3.5-5.1); SODIUM SERUM 145 mmol/L (136-145); UREA NITROGEN, BLOOD 7 mg/dL (7-18)
[2022-06-26 06:57] LABS: GLOMERULAR FILTR. RATE CALC > 60 mL/min (>60)
[2022-06-26 07:13] VITALS: BP 89/74
[2022-06-26] MEDS: APIXABAN 5 MG TABLET PO SCH (08:27)
[2022-06-26] MEDS: GABAPENTIN 300 MG CAPSULE PO SCH ×2 (08:27→15:53)
[2022-06-26] MEDS: OXYBUTYNIN CHLORIDE 5 MG TABLET PO SCH ×2 (08:27→15:53)
[2022-06-26] MEDS: PANTOPRAZOLE SODIUM 40 MG DR TABLET PO SCH (08:27)
[2022-06-26] MEDS: ATORVASTATIN CALCIUM 40 MG TABLET PO SCH (08:27)
[2022-06-26] MEDS: MULTIVITAMINS WITH MINERALS, THERAPEUTIC TABLET PO SCH (08:27)
[2022-06-26] MEDS: BACLOFEN 10 MG TABLET PO SCH ×3 (08:29→15:54)
[2022-06-26] MEDS: ESCITALOPRAM OXALATE 10 MG TABLET PO SCH (08:30)
[2022-06-26] MEDS ORDERED: MIDODRINE HCL 2.5 MG TABLET PO SCH (09:00)
[2022-06-26 10:59] VITALS: BP 95/54
[2022-06-26] MEDS: CefTRIAXone 1 GM/DEXTROSE 50 ML IV SCH (12:15)
[2022-06-26] MEDS ORDERED: [UNRECOGNIZED DRUG - CODE] TP (12:19)
[2022-06-26] MEDS ORDERED: ATOR40TA71 PO (12:19)
[2022-06-26] MEDS ORDERED: APIX5TAB PO (12:19)
[2022-06-26] MEDS ORDERED: MIDO2.5T19 PO (12:19)
[2022-06-26 15:01] VITALS: BP 129/78
[2022-06-26 15:19] VITALS: BP 95/37
== END 2022-06-26 17:55 | disposition home or self-care (01) | DRG 190 ==
LOC: EMS 09:32 → 5S 12:12
PROVIDERS: ADMIT Internal Medicine; ATTEND Internal Medicine
DX: I21.4 Non-ST elevation (NSTEMI) myocardial infarction (principal); I26.99 Other pulmonary embolism without acute cor pulmonale; G82.50 Quadriplegia, unspecified; G93.41 Metabolic encephalopathy; I95.9 Hypotension, unspecified; I51.7 Cardiomegaly; N39.0 Urinary tract infection, site not specified; K21.9 Gastro-esophageal reflux disease without esophagitis; Z20.822 Contact with and (suspected) exposure to COVID-19; F41.9 Anxiety disorder, unspecified; Z79.899 Other long term (current) drug therapy; Z79.01 Long term (current) use of anticoagulants
CPT/HCPCS: 70450; 71045; 71275; 72040; 72100; 80048; 80053; 80061; 80074; 81001; 81002; 82140; 82550; 83605; 83735; 83880; 84145; 84484; 84703; 85025; 85610; 85730; 87040; 87086; 93005; 93306; 93880; 93970; 99285; G0480; G0481; J0696; J1644; J2405; J7030; J7050; Q9967; 36415-L1; 36415-TC

== ENCOUNTER 2023-03-01 20:45 | Emergency (ER) | payer MEDICAID ==
[~2023-03-01] VITALS: Ht 160 cm; Wt 107.3 kg
[~2023-03-01 20:45] MED LIST changes: +APIX5TAB PO; +ATOR40TA71 PO; +BACL20TA PO; +ESCI10 PO; +FAMO20TA8 PO; +GABA600T10 PO; +MIDO2.5T PO; +MIDO2.5T19 PO; +MULT15TA3 PO; +OXYB5TAB20 PO; +[UNRECOGNIZED DRUG - CODE] TP
[2023-03-01] MEDS ORDERED: ESCI20TA37 PO (21:31)
[2023-03-01] MEDS ORDERED: ATOR40TA28 PO (21:31)
[2023-03-01] MEDS ORDERED: APIX2.5T PO (21:31)
[2023-03-01] MEDS ORDERED: TRAZ-252 PO (21:31)
[2023-03-01] MEDS ORDERED: DULO-114 PO (21:31)
[2023-03-01] MEDS ORDERED: GABA800T9 PO (21:31)
[2023-03-01] MEDS ORDERED: FERR-72 PO (21:31)
[2023-03-01] MEDS ORDERED: ASCO500T20 PO (21:31)
[2023-03-01 22:10] LABS: BASOPHILS % (AUTO) 1.1 % (0.0-2.0); HEMOGLOBIN 10.8 g/dL (12.0-16.0); LYMPHOCYTES # (AUTO) 2.8 K/uL (1.0-4.8); LYMPHOCYTES % (AUTO) 47.3 % (22.0-44.0); MEAN CORPUSCULAR HEMOGLOBIN 26.1 pg (26.0-34.0); MEAN CORPUSCULAR HGB CONC 31.6 G/dL (31.0-37.0); MEAN CORPUSCULAR VOLUME 83 fL (80-100); MONOCYTES # (AUTO) 0.4 K/uL (0.1-1.0); NEUTROPHILS # (AUTO) 2.4 K/uL (1.8-7.7); NEUTROPHILS % (AUTO) 39.6 % (40.0-70.0); PLATELET COUNT (AUTO) 433 K/uL (150-450); RED BLOOD CELL COUNT(AUTO) 4.13 MIL/uL (4.00-5.20); RED CELL DISTRIBUTION WIDTH 16.3 % (11.5-14.5)
[2023-03-01 22:17] LABS: ANION GAP 5 mmol/L (8-16); CALCIUM, TOTAL 8.8 mg/dL (8.8-10.5); CARBON DIOXIDE 29 mmol/L (22-29); CHLORIDE 106 mmol/L (98-107); CREATININE 0.53 mg/dL (0.60-1.30); GLOMERULAR FILTR. RATE CALC > 60 mL/min (>60); GLUCOSE,RANDOM 94 mg/dL (70-110); POTASSIUM 4.5 mmol/L (3.5-5.1); SODIUM SERUM 140 mmol/L (136-145); UREA NITROGEN, BLOOD 11 mg/dL (7-18)
[2023-03-01 22:23] LABS: ALANINE AMINOTRANSFERASE 14 U/L (12-78); ALKALINE PHOSPHATASE 93 U/L (46-116); ASPARTATE AMINOTRANSFERASE 16 U/L (15-37); BILIRUBIN,TOTAL 0.2 mg/dL (0.1-1.0); LIPASE 47 U/L (73-393); TOTAL PROTEIN, SERUM 6.4 g/dL (6.4-8.2)
[2023-03-01 22:39] LABS: APPEARANCE,URINE HAZY (CLEAR); BILIRUBIN,URINE NEGATIVE (NEGATIVE); GLUCOSE, URINE (UA) NEGATIVE (NEGATIVE); KETONES,URINE NEGATIVE (NEGATIVE); LEUKOCYTE ESTERASE ,URINE LARGE (NEGATIVE); NITRATE,URINE NEGATIVE (NEGATIVE); OCCULT BLOOD,URINE LARGE (NEGATIVE); PH,URINE 6.5 (5.0-8.0); PROTEIN,URINE 30-70 mg/dL (NEGATIVE); SPECIFIC GRAVITIY, URINE 1.027 (1.003-1.030)
[2023-03-01] MEDS ORDERED: DOXYCYCLINE HYCLATE 100 MG TABLET PO ONE (22:45)
[2023-03-01] MEDS ORDERED: BACITRACIN 0.9 GM PACKET OINTMENT TP ONE (22:45)
[2023-03-01 22:50] LABS: BACTERIA,URINE Many /HPF (None Seen); RBC,URINE 26-50 /HPF (0-2); SQUAMOUS EPITHELIAL CELL,UR Few /LPF (None Seen); WBC,URINE 26-50 /HPF (0-5)
[2023-03-01] MEDS ORDERED: CEPH-558 PO (23:24)
[2023-03-01] MEDS ORDERED: DOXY-354 PO (23:24)
[2023-03-01] MEDS ORDERED: CEPHALEXIN MONOHYDRATE 500 MG CAPSULE PO ONE (23:30)
[2023-03-01 23:48] LABS: CREATINE KINASE, TOTAL ONLY 402 U/L (26-192)
[2023-03-02 01:41] VITALS: BP 120/54
== END 2023-03-02 01:43 | disposition home or self-care (01) ==
LOC: EMS 20:45
DX: S31.103A Unspecified open wound of abdominal wall, right lower quadrant without penetration into peritoneal cavity, initial encounter (principal); N39.0 Urinary tract infection, site not specified; F41.9 Anxiety disorder, unspecified; K21.9 Gastro-esophageal reflux disease without esophagitis; X58.XXXA Exposure to other specified factors, initial encounter; Y93.89 Activity, other specified; Y92.89 Other specified places as the place of occurrence of the external cause; Y99.8 Other external cause status
CPT/HCPCS: 80053; 81001; 82550; 83690; 84703; 85025; 87086; 87186; 99284

== ENCOUNTER 2023-07-31 01:56 | Emergency (ER) | payer MEDICAID ==
[~2023-07-31] VITALS: Ht 160 cm; Wt 113.6 kg
[~2023-07-31 01:56] MED LIST changes: +APIX2.5T PO; -APIX5TAB PO; +ASCO500T20 PO; +ATOR40TA28 PO; -ATOR40TA71 PO; +CEFU250T87 PO; +CEPH-558 PO; +DOXY-354 PO; +DULO-114 PO; -ESCI10 PO; +ESCI20TA37 PO; +FERR-72 PO; -GABA600T10 PO; +GABA800T9 PO; -MIDO2.5T PO; +SENN-338 PO; +TRAZ-252 PO
[2023-07-31] MEDS ORDERED: 0.9% SODIUM CHLORIDE 10 ML SYRINGE IVP PRN (02:30)
[2023-07-31] MEDS ORDERED: SODIUM CHLORIDE 0.9% 3,400 ML IV ONE (02:30)
[2023-07-31 02:45] LABS: BASOPHILS % (AUTO) 1.2 % (0.0-2.0); HEMATOCRIT 32.5 % (36-46); HEMOGLOBIN 10.3 g/dL (12.0-16.0); LYMPHOCYTES # (AUTO) 2.8 K/uL (1.0-4.8); LYMPHOCYTES % (AUTO) 44.6 % (22.0-44.0); MEAN CORPUSCULAR HEMOGLOBIN 25.9 pg (26.0-34.0); MEAN CORPUSCULAR HGB CONC 31.7 G/dL (31.0-37.0); MEAN CORPUSCULAR VOLUME 82 fL (80-100); MONOCYTES # (AUTO) 0.5 K/uL (0.1-1.0); MONOCYTES % (AUTO) 8.1 % (2.0-9.0); NEUTROPHILS # (AUTO) 2.7 K/uL (1.8-7.7); NEUTROPHILS % (AUTO) 42.1 % (40.0-70.0); PLATELET COUNT (AUTO) 318 K/uL (150-450); RED BLOOD CELL COUNT(AUTO) 3.99 MIL/uL (4.00-5.20); WHITE BLOOD COUNT (AUTO) 6.3 K/uL (4.5-11.0)
[2023-07-31 03:03] LABS: PROTHROMBIN TIME 10.8 SEC (9.4-11.6)
[2023-07-31 03:06] LABS: ALANINE AMINOTRANSFERASE 21 U/L (12-78); ALBUMIN 2.9 g/dL (3.4-5.0); ALKALINE PHOSPHATASE 113 U/L (46-116); ANION GAP 8 mmol/L (8-16); ASPARTATE AMINOTRANSFERASE 19 U/L (15-37); BILIRUBIN,TOTAL 0.2 mg/dL (0.1-1.0); CALCIUM, TOTAL 8.6 mg/dL (8.8-10.5); CARBON DIOXIDE 26 mmol/L (22-29); CHLORIDE 102 mmol/L (98-107); CREATININE 0.47 mg/dL (0.60-1.30); GLOMERULAR FILTR. RATE CALC > 60 mL/min (>60); GLUCOSE,RANDOM 94 mg/dL (70-110); POTASSIUM 4.2 mmol/L (3.5-5.1); SODIUM SERUM 136 mmol/L (136-145); TOTAL PROTEIN, SERUM 6.4 g/dL (6.4-8.2); UREA NITROGEN, BLOOD 13 mg/dL (7-18)
[2023-07-31 04:28] LABS: APPEARANCE,URINE CLEAR (CLEAR); BILIRUBIN,URINE NEGATIVE (NEGATIVE); COLOR,URINE YELLOW (YELLOW); GLUCOSE, URINE (UA) NEGATIVE (NEGATIVE); KETONES,URINE NEGATIVE (NEGATIVE); LEUKOCYTE ESTERASE ,URINE MODERATE (NEGATIVE); NITRATE,URINE NEGATIVE (NEGATIVE); OCCULT BLOOD,URINE NEGATIVE (NEGATIVE); PROTEIN,URINE TRACE mg/dL (NEGATIVE); SPECIFIC GRAVITIY, URINE 1.027 (1.003-1.030); UROBILINOGEN,URINE <=1.0 mg/dL (<=1.0)
[2023-07-31 04:30] VITALS: TEMP 97.3
[2023-07-31 05:02] LABS: BACTERIA,URINE Moderate /HPF (None Seen); RBC,URINE 0-2 /HPF (0-2); SQUAMOUS EPITHELIAL CELL,UR Few /LPF (None Seen)
[2023-07-31] MEDS ORDERED: SULF-261 PO (05:08)
[2023-07-31] MEDS ORDERED: CefTRIAXone 1 GM/DEXTROSE 50 ML IV ONE (05:15)
[2023-07-31 06:13] VITALS: BP 114/69; PULSE 68; RESP 18
== END 2023-07-31 10:07 | disposition home or self-care (01) ==
LOC: EMS 01:57
DX: N39.0 Urinary tract infection, site not specified (principal); F41.9 Anxiety disorder, unspecified; Z98.890 Other specified postprocedural states
CPT/HCPCS: 99285; 96365; 71045; 96361; 80053; 81001; 83605; 85025; 85610; 87040; 36415; 87086; 87186; 93005; 84145; J0696; J7030

== ENCOUNTER 2023-09-09 18:03 | Inpatient (IN) | payer MEDICAID ==
[~2023-09-09] VITALS: Ht 160 cm; Wt 109.1 kg
[~2023-09-09 18:03] MED LIST changes: -CEFU250T87 PO; -CEPH-558 PO; -DOXY-354 PO; -ETON68IM4 SD; -MIDO2.5T19 PO; +SULF-261 PO; -TRAZ-252 PO; -[UNRECOGNIZED DRUG - CODE] TP
[2023-09-09] MEDS ORDERED: SODIUM CHLORIDE 0.9% 1,000 ML IV ONE ×3 (19:15→22:15)
[2023-09-09 19:30] LABS: BASOPHILS % (AUTO) 0.7 % (0.0-2.0); EOSINOPHILS % (AUTO) 2.5 % (1.0-6.0); HEMATOCRIT 35.7 % (36-46); HEMOGLOBIN 11.5 g/dL (12.0-16.0); LYMPHOCYTES # (AUTO) 2.9 K/uL (1.0-4.8); LYMPHOCYTES % (AUTO) 46.8 % (22.0-44.0); MEAN CORPUSCULAR HEMOGLOBIN 27.2 pg (26.0-34.0); MEAN CORPUSCULAR HGB CONC 32.2 G/dL (31.0-37.0); MEAN CORPUSCULAR VOLUME 85 fL (80-100); MONOCYTES # (AUTO) 0.4 K/uL (0.1-1.0); NEUTROPHILS # (AUTO) 2.8 K/uL (1.8-7.7); PLATELET COUNT (AUTO) 319 K/uL (150-450); RED BLOOD CELL COUNT(AUTO) 4.23 MIL/uL (4.00-5.20); RED CELL DISTRIBUTION WIDTH 17.9 % (11.5-14.5); WHITE BLOOD COUNT (AUTO) 6.3 K/uL (4.5-11.0)
[2023-09-09 19:41] LABS: ANION GAP 9 mmol/L (8-16); CALCIUM, TOTAL 8.9 mg/dL (8.8-10.5); CARBON DIOXIDE 26 mmol/L (22-29); CHLORIDE 105 mmol/L (98-107); CREATININE 0.62 mg/dL (0.60-1.30); GLOMERULAR FILTR. RATE CALC > 60 mL/min (>60); GLUCOSE,RANDOM 92 mg/dL (70-110); POTASSIUM 4.1 mmol/L (3.5-5.1); SODIUM SERUM 140 mmol/L (136-145); UREA NITROGEN, BLOOD 13 mg/dL (7-18)
[2023-09-09 19:47] LABS: ALANINE AMINOTRANSFERASE 24 U/L (12-78); ALKALINE PHOSPHATASE 102 U/L (46-116); ASPARTATE AMINOTRANSFERASE 21 U/L (15-37); BILIRUBIN,TOTAL 0.3 mg/dL (0.1-1.0); LIPASE 21 U/L (16-77); TOTAL PROTEIN, SERUM 6.7 g/dL (6.4-8.2)
[2023-09-09 19:49] LABS: LACTIC ACID 0.8 mmol/L (0.4-2.0)
[2023-09-09 20:15] LABS: COVID AG,FIA SOURCE NASAL SWAB
[2023-09-09 20:35] LABS: INFLUENZA TYPE A NEGATIVE FOR TYPE A (NEGATIVE); INFLUENZA TYPE B NEGATIVE FOR TYPE B (NEGATIVE); SARS-COV2 (COVID) ANTIGEN,FIA Negative (Negative)
[2023-09-09 21:16] LABS: APPEARANCE,URINE HAZY (CLEAR); BILIRUBIN,URINE NEGATIVE (NEGATIVE); COLOR,URINE LIGHT YELLOW (YELLOW); GLUCOSE, URINE (UA) NEGATIVE (NEGATIVE); KETONES,URINE NEGATIVE (NEGATIVE); LEUKOCYTE ESTERASE ,URINE LARGE (NEGATIVE); NITRATE,URINE NEGATIVE (NEGATIVE); OCCULT BLOOD,URINE SMALL (NEGATIVE); PH,URINE 6.5 (5.0-8.0); PROTEIN,URINE 100-200,SEE CONFIRM mg/dL (NEGATIVE); UROBILINOGEN,URINE <=1.0 mg/dL (<=1.0)
[2023-09-09 21:26] LABS: SULFOSALICYLIC ACID,URINE 1+ (Negative)
[2023-09-09 21:27] LABS: BACTERIA,URINE Few /HPF (None Seen); SQUAMOUS EPITHELIAL CELL,UR Moderate /LPF (None Seen)
[2023-09-09] MEDS ORDERED: MECL-134 PO (21:39)
[2023-09-09] MEDS ORDERED: CEPH-558 PO (21:39)
[2023-09-09] MEDS ORDERED: ONDA-104 PO (21:39)
[2023-09-09] MEDS ORDERED: GENTAMICIN SULFATE 160 MG in DEXTROSE 5%-WATER 50 ML IV ONE (21:45)
[2023-09-09] MEDS ORDERED: CefTRIAXone 1 GM/DEXTROSE 50 ML IV ONE (21:45)
[2023-09-09] MEDS ORDERED: MECLIZINE HCL 25 MG TABLET PO ONE (21:45)
[2023-09-09] MEDS ORDERED: ACETAMINOPHEN 325 MG TABLET PO PRN (22:15)
[2023-09-09] MEDS ORDERED: MAGNESIUM HYDROXIDE SUSPENSION 30 ML UDCUP PO PRN (22:15)
[2023-09-09] MEDS ORDERED: ZOLPIDEM TARTRATE 5 MG TABLET PO PRN (22:15)
[2023-09-09] MEDS ORDERED: ONDANSETRON HCL 4 MG/2 ML VIAL IVP PRN (22:15)
[2023-09-10 00:55] VITALS: BP 93/73; PULSE 73; RESP 18; TEMP 98
[2023-09-10] MEDS: HEPARIN SODIUM,PORCINE 5,000 UNITS/ML VIAL SQ SCH ×4 (01:00→23:29)
[2023-09-10 04:07] VITALS: BP 113/64; PULSE 76; RESP 19; TEMP 98.2
[2023-09-10] MEDS: FAMOTIDINE 20 MG TABLET PO SCH (08:11)
[2023-09-10] MEDS: GABAPENTIN 300 MG CAPSULE PO SCH ×3 (08:11→20:32)
[2023-09-10] MEDS: DOCUSATE SODIUM 100 MG CAPSULE PO SCH ×2 (08:11→20:32)
[2023-09-10 08:50] VITALS: BP 118/60; PULSE 79; RESP 18; TEMP 97.9
[2023-09-10 15:30] VITALS: BP 104/59; PULSE 74; RESP 20; TEMP 98.2
[2023-09-10] MEDS ORDERED: SODIUM CHLORIDE 0.9% 500 ML IV ONE (18:33)
[2023-09-10] MEDS: CIPROFLOXACIN 400 MG/D5% WATER 200 ML IV SCH (18:37)
[2023-09-10 19:05] VITALS: BP 116/54; PULSE 98; RESP 20; TEMP 98.8
[2023-09-10] MEDS: OxyCODONE HCL/ACETAMINOPHEN 5-325 MG TABLET PO PRN (20:35)
[2023-09-10] MEDS: CefTAZidime PENTAHYDRATE 1 GM in DEXTROSE 5%-WATER 50 ML IV SCH (20:36)
[2023-09-10] MEDS ORDERED: CefTRIAXone 1 GM/DEXTROSE 50 ML IV SCH (22:00)
[2023-09-11 05:07] VITALS: BP 95/62; PULSE 69; RESP 20; TEMP 98.5
[2023-09-11] MEDS: CIPROFLOXACIN 400 MG/D5% WATER 200 ML IV SCH (05:54)
[2023-09-11 07:27] VITALS: BP 105/70; PULSE 73; RESP 20; TEMP 98.5
[2023-09-11] MEDS: GABAPENTIN 300 MG CAPSULE PO SCH (08:27)
[2023-09-11] MEDS: FAMOTIDINE 20 MG TABLET PO SCH (08:27)
[2023-09-11] MEDS: CefTAZidime PENTAHYDRATE 1 GM in DEXTROSE 5%-WATER 50 ML IV SCH (08:27)
[2023-09-11] MEDS: DOCUSATE SODIUM 100 MG CAPSULE PO SCH (08:27)
[2023-09-11] MEDS: HEPARIN SODIUM,PORCINE 5,000 UNITS/ML VIAL SQ SCH (08:27)
[2023-09-11] MEDS: OxyCODONE HCL/ACETAMINOPHEN 5-325 MG TABLET PO PRN (08:38)
[2023-09-11] MEDS ORDERED: CIPR500T10 PO (10:29)
== END 2023-09-11 16:02 | disposition home or self-care (01) | DRG 466 ==
LOC: EMS 18:03 → 6S 23:50
PROVIDERS: ADMIT Internal Medicine; ATTEND Internal Medicine
DX: T83.518A Infection and inflammatory reaction due to other urinary catheter, initial encounter (principal); G82.50 Quadriplegia, unspecified; I95.9 Hypotension, unspecified; N31.9 Neuromuscular dysfunction of bladder, unspecified; F41.9 Anxiety disorder, unspecified; E66.01 Morbid (severe) obesity due to excess calories; K21.9 Gastro-esophageal reflux disease without esophagitis; Z20.822 Contact with and (suspected) exposure to COVID-19; N39.0 Urinary tract infection, site not specified; Y84.6 Urinary catheterization as the cause of abnormal reaction of the patient, or of later complication, without mention of misadventure at the time of the procedure; Z87.440 Personal history of urinary (tract) infections; Y92.89 Other specified places as the place of occurrence of the external cause; Z79.899 Other long term (current) drug therapy; Z68.41 Body mass index [BMI] 40.0-44.9, adult
CPT/HCPCS: 51702; 71045; 74176; 80053; 81001; 81002; 83605; 83690; 84703; 85025; 87040; 87086; 87186; 87804; 99291; J0696; J0713; J0744; J1580; J1644; J7030; J7040; J7060; 36415-L1; 36415-TC

== ENCOUNTER 2024-07-27 15:01 | Inpatient (IN) | payer MEDICARE, MEDICAID ==
[~2024-07-27] VITALS: Ht 154.9 cm; Wt 125.7 kg
[~2024-07-27 15:01] MED LIST changes: +AMOX1TAB15 PO; -DULO-114 PO; +DULO20CA71 PO; +ERGO500093 PO; -FERR-72 PO; +GABA-1201 PO; -GABA800T9 PO; +METH1TAB66 PO; +PREG100C56 PO; -SENN-338 PO; +SENN-374 PO; -SULF-261 PO
[2024-07-27] MEDS ORDERED: 0.9% SODIUM CHLORIDE 10 ML SYRINGE IVP PRN (15:45)
[2024-07-27 16:09] LABS: BASOPHILS % (AUTO) 0.3 % (0.0-2.0); EOSINOPHILS % (AUTO) 0.6 % (1.0-6.0); HEMATOCRIT 31.2 % (36-46); HEMOGLOBIN 9.8 g/dL (12.0-16.0); LYMPHOCYTES % (AUTO) 11.3 % (22.0-44.0); MEAN CORPUSCULAR HEMOGLOBIN 26.4 pg (26.0-34.0); MEAN CORPUSCULAR HGB CONC 31.2 G/dL (31.0-37.0); MEAN CORPUSCULAR VOLUME 84 fL (80-100); MONOCYTES # (AUTO) 1.1 K/uL (0.1-1.0); MONOCYTES % (AUTO) 6.3 % (2.0-9.0); NEUTROPHILS # (AUTO) 14.1 K/uL (1.8-7.7); NEUTROPHILS % (AUTO) 81.5 % (40.0-70.0); PLATELET COUNT (AUTO) 282 K/uL (150-450); RED CELL DISTRIBUTION WIDTH 17.1 % (11.5-14.5); WHITE BLOOD COUNT (AUTO) 17.3 K/uL (4.5-11.0)
[2024-07-27] MEDS: ACETAMINOPHEN 1000 MG/ISO-OSM 100 ML IV ONE ×2 (16:13→16:22)
[2024-07-27 16:19] LABS: ANION GAP 11 mmol/L (8-16); CALCIUM, TOTAL 8.1 mg/dL (8.8-10.5); CARBON DIOXIDE 21 mmol/L (22-29); CHLORIDE 104 mmol/L (98-107); GLOMERULAR FILTR. RATE CALC > 60 mL/min (>60); GLUCOSE,RANDOM 143 mg/dL (70-110); POTASSIUM 3.6 mmol/L (3.5-5.1); SODIUM SERUM 136 mmol/L (136-145); UREA NITROGEN, BLOOD 8 mg/dL (7-18)
[2024-07-27] MEDS: PIPERACILLIN/TAZO 3.375 GM/D5W 50 ML IV ONE (16:19)
[2024-07-27] MEDS: SODIUM CHLORIDE 0.9% 2,350 ML IV ONE (16:20)
[2024-07-27] MEDS: CefTRIAXone 1 GM/DEXTROSE 50 ML IV ONE (16:20)
[2024-07-27 16:21] LABS: PROTHROMBIN TIME 10.9 SEC (9.4-11.6)
[2024-07-27 16:26] LABS: B-TYPE NATRIURETIC PEPTIDE 94 pg/mL (0-100); LACTIC ACID 1.4 mmol/L (0.4-2.0)
[2024-07-27 16:31] LABS: ALANINE AMINOTRANSFERASE 19 U/L (12-78); ALBUMIN 2.6 g/dL (3.4-5.0); ALKALINE PHOSPHATASE 84 U/L (46-116); ASPARTATE AMINOTRANSFERASE 17 U/L (15-37); BILIRUBIN,TOTAL 0.5 mg/dL (0.1-1.0); HCG,QUANTITATIVE 1 mIU/mL (0-6)
[2024-07-27 16:49] LABS: TROPONIN I-HIGH SENSITIVITY 62 ng/L (<51)
[2024-07-27 17:15] LABS: APPEARANCE,URINE HAZY (CLEAR); BILIRUBIN,URINE NEGATIVE (NEGATIVE); COLOR,URINE LIGHT YELLOW (YELLOW); GLUCOSE, URINE (UA) NEGATIVE (NEGATIVE); KETONES,URINE NEGATIVE (NEGATIVE); LEUKOCYTE ESTERASE ,URINE MODERATE (NEGATIVE); NITRATE,URINE POSITIVE (NEGATIVE); OCCULT BLOOD,URINE LARGE (NEGATIVE); PROTEIN,URINE 100-200,SEE CONFIRM mg/dL (NEGATIVE); SPECIFIC GRAVITIY, URINE 1.015 (1.003-1.030); UROBILINOGEN,URINE <=1.0 mg/dL (<=1.0)
[2024-07-27 17:43] LABS: BACTERIA,URINE Many /HPF (None Seen); RBC,URINE 51-100 /HPF (0-2); SULFOSALICYLIC ACID,URINE 3+ (Negative); WBC,URINE Full Field /HPF (0-5)
[2024-07-27] MEDS: IBUPROFEN 800 MG TABLET PO ONE (17:49)
[2024-07-27 18:43] LABS: COVID AG,FIA SOURCE NASAL SWAB
[2024-07-27 19:09] LABS: SARS-COV2 (COVID) ANTIGEN,FIA Negative (Negative)
[2024-07-27 19:10] LABS: INFLUENZA TYPE A NEGATIVE FOR TYPE A (NEGATIVE); INFLUENZA TYPE B NEGATIVE FOR TYPE B (NEGATIVE)
[2024-07-27] MEDS ORDERED: MORPHINE SULFATE 2 MG/ML SYRINGE IVP PRN (22:15)
[2024-07-27] MEDS ORDERED: MAGNESIUM HYDROXIDE SUSPENSION 30 ML UDCUP PO PRN (22:15)
[2024-07-27] MEDS ORDERED: ONDANSETRON HCL 4 MG/2 ML VIAL IVP PRN (22:15)
[2024-07-27] MEDS ORDERED: BISACODYL 10 MG RECTAL RECTAL SUPPOSITORY PR PRN (22:15)
[2024-07-27] MEDS ORDERED: ZOLPIDEM TARTRATE 5 MG TABLET PO PRN (22:15)
[2024-07-27] MEDS ORDERED: HYDROCODONE/ACETAMINOPHEN 5-325 MG TABLET PO PRN (22:15)
[2024-07-27 22:30] VITALS: BP 120/66; PULSE 111; RESP 20; TEMP 98.1; O2SAT 97
[2024-07-27] MEDS: OXYBUTYNIN CHLORIDE 5 MG TABLET PO ONE (23:42)
[2024-07-27] MEDS: GABAPENTIN 400 MG CAPSULE PO ONE (23:42)
[2024-07-27] MEDS: ATORVASTATIN CALCIUM 40 MG TABLET PO SCH (23:42)
[2024-07-27] MEDS: APIXABAN 2.5 MG TABLET PO SCH (23:43)
[2024-07-27] MEDS: SENNOSIDES 8.6 MG TABLET PO SCH (23:43)
[2024-07-27] MEDS: METHENAMINE HIPPURATE 1 GM TABLET PO SCH (23:43)
[2024-07-27] MEDS: PREGABALIN 50 MG CAPSULE PO ONE (23:43)
[2024-07-27] MEDS: BACLOFEN 10 MG TABLET PO ONE (23:43)
[2024-07-27 23:49] VITALS: BP 139/77; PULSE 101; RESP 20; TEMP 98; O2SAT 94
[2024-07-28] VITALS (10 sets, daily range): BP systolic 101–133; BP diastolic 0–79; PULSE 96–125; RESP 17–24; TEMP 98.2–101.1; O2SAT 92–98
[2024-07-28 06:31] LABS: BASOPHILS % (AUTO) 0.5 % (0.0-2.0); EOSINOPHILS % (AUTO) 2.2 % (1.0-6.0); HEMATOCRIT 29.5 % (36-46); HEMOGLOBIN 9.4 g/dL (12.0-16.0); LYMPHOCYTES # (AUTO) 1.8 K/uL (1.0-4.8); MEAN CORPUSCULAR HEMOGLOBIN 27.1 pg (26.0-34.0); MEAN CORPUSCULAR HGB CONC 31.9 G/dL (31.0-37.0); MEAN CORPUSCULAR VOLUME 85 fL (80-100); MONOCYTES # (AUTO) 1.1 K/uL (0.1-1.0); MONOCYTES % (AUTO) 8.4 % (2.0-9.0); NEUTROPHILS # (AUTO) 10.3 K/uL (1.8-7.7); NEUTROPHILS % (AUTO) 75.9 % (40.0-70.0); PLATELET COUNT (AUTO) 262 K/uL (150-450); RED BLOOD CELL COUNT(AUTO) 3.47 MIL/uL (4.00-5.20); RED CELL DISTRIBUTION WIDTH 16.7 % (11.5-14.5); WHITE BLOOD COUNT (AUTO) 13.5 K/uL (4.5-11.0)
[2024-07-28 06:51] LABS: ANION GAP 11 mmol/L (8-16); CALCIUM, TOTAL 7.6 mg/dL (8.8-10.5); CARBON DIOXIDE 21 mmol/L (22-29); CHLORIDE 107 mmol/L (98-107); CREATININE 0.48 mg/dL (0.60-1.30); GLOMERULAR FILTR. RATE CALC > 60 mL/min (>60); GLUCOSE,RANDOM 71 mg/dL (70-110); POTASSIUM 3.7 mmol/L (3.5-5.1); SODIUM SERUM 139 mmol/L (136-145); UREA NITROGEN, BLOOD 6 mg/dL (7-18)
[2024-07-28] MEDS: GABAPENTIN 400 MG CAPSULE PO SCH (09:00)
[2024-07-28] MEDS: BACLOFEN 10 MG TABLET PO PRN (09:49)
[2024-07-28] MEDS: DOCUSATE SODIUM 100 MG CAPSULE PO SCH (09:50)
[2024-07-28] MEDS: ASCORBIC ACID 500 MG TABLET PO SCH (09:50)
[2024-07-28] MEDS: DULoxetine HCL 20 MG CAPSULE PO SCH (09:50)
[2024-07-28] MEDS: PREGABALIN 50 MG CAPSULE PO SCH (09:50)
[2024-07-28] MEDS: PANTOPRAZOLE SODIUM 40 MG/VIAL IVP SCH (09:50)
[2024-07-28] MEDS: MULTIVITAMINS WITH MINERALS, THERAPEUTIC TABLET PO SCH (09:50)
[2024-07-28] MEDS: ESCITALOPRAM OXALATE 20 MG TABLET PO SCH (09:51)
[2024-07-28] MEDS: OXYBUTYNIN CHLORIDE 5 MG TABLET PO SCH (09:51)
[2024-07-28] MEDS: ACETAMINOPHEN 325 MG TABLET PO PRN (13:00)
[2024-07-28] MEDS ORDERED: SODIUM CHLORIDE 0.9% 250 ML IV ONE (16:33)
[2024-07-28] MEDS: CefTRIAXone 1 GM/DEXTROSE 50 ML IV SCH (16:57)
[2024-07-28] MEDS: IPRATROPIUM BROMIDE 0.5 MG/2.5 ML NEB SOLUTION NEB PRN (20:32)
[2024-07-28] MEDS: ALBUTEROL SULFATE 2.5 MG/0.5 ML NEB SOLUTION NEB PRN (20:32)
[2024-07-29 04:21] VITALS: BP 133/96; PULSE 104; RESP 17; TEMP 98.6; O2SAT 98
[2024-07-29 10:10] LABS: BASOPHILS % (AUTO) 0.4 % (0.0-2.0); HEMATOCRIT 32.3 % (36-46); HEMOGLOBIN 10.2 g/dL (12.0-16.0); LYMPHOCYTES # (AUTO) 1.6 K/uL (1.0-4.8); LYMPHOCYTES % (AUTO) 15.7 % (22.0-44.0); MEAN CORPUSCULAR HEMOGLOBIN 26.8 pg (26.0-34.0); MEAN CORPUSCULAR HGB CONC 31.7 G/dL (31.0-37.0); MEAN CORPUSCULAR VOLUME 84 fL (80-100); MONOCYTES # (AUTO) 0.5 K/uL (0.1-1.0); MONOCYTES % (AUTO) 4.9 % (2.0-9.0); NEUTROPHILS # (AUTO) 7.6 K/uL (1.8-7.7); PLATELET COUNT (AUTO) 271 K/uL (150-450); RED BLOOD CELL COUNT(AUTO) 3.83 MIL/uL (4.00-5.20); RED CELL DISTRIBUTION WIDTH 16.6 % (11.5-14.5); WHITE BLOOD COUNT (AUTO) 9.9 K/uL (4.5-11.0)
[2024-07-29 10:27] LABS: ANION GAP 12 mmol/L (8-16); CALCIUM, TOTAL 8.4 mg/dL (8.8-10.5); CARBON DIOXIDE 23 mmol/L (22-29); CHLORIDE 101 mmol/L (98-107); CREATININE 0.69 mg/dL (0.60-1.30); GLOMERULAR FILTR. RATE CALC > 60 mL/min (>60); GLUCOSE,RANDOM 133 mg/dL (70-110); POTASSIUM 3.8 mmol/L (3.5-5.1); SODIUM SERUM 136 mmol/L (136-145); UREA NITROGEN, BLOOD 6 mg/dL (7-18)
[2024-07-29 10:48] VITALS: BP 120/78; PULSE 115; RESP 18; TEMP 100; O2SAT 96
[2024-07-29 18:53] VITALS: BP 125/78; PULSE 100; RESP 20; TEMP 98.6; O2SAT 95
[2024-07-29 19:49] VITALS: BP 100/62; PULSE 115; RESP 18; TEMP 102.2; O2SAT 95
[2024-07-29 21:07] VITALS: PULSE 95; TEMP 99.6
[2024-07-29 23:48] LABS: APPEARANCE,URINE CLEAR (CLEAR); BILIRUBIN,URINE NEGATIVE (NEGATIVE); COLOR,URINE LIGHT YELLOW (YELLOW); GLUCOSE, URINE (UA) NEGATIVE (NEGATIVE); KETONES,URINE NEGATIVE (NEGATIVE); LEUKOCYTE ESTERASE ,URINE TRACE (NEGATIVE); NITRATE,URINE NEGATIVE (NEGATIVE); OCCULT BLOOD,URINE TRACE (NEGATIVE); PROTEIN,URINE TRACE mg/dL (NEGATIVE); SPECIFIC GRAVITIY, URINE 1.011 (1.003-1.030); UROBILINOGEN,URINE <=1.0 mg/dL (<=1.0)
[2024-07-29 23:56] LABS: BACTERIA,URINE None Seen /HPF (None Seen); SQUAMOUS EPITHELIAL CELL,UR Few /LPF (None Seen)
[2024-07-30 04:50] VITALS: BP 137/94; PULSE 104; RESP 20; TEMP 98.7; O2SAT 98
[2024-07-30 08:00] VITALS: BP 152/95; PULSE 101; RESP 19; TEMP 98.4; O2SAT 97
[2024-07-30] MEDS ORDERED: SODIUM CHLORIDE 0.9% 500 ML IV ONE (15:59)
[2024-07-30 16:15] VITALS: BP 105/58; PULSE 101; RESP 19; TEMP 98.4; O2SAT 97
[2024-07-30 19:32] VITALS: BP 134/85; PULSE 106; RESP 18; TEMP 97.7; O2SAT 98
[2024-07-31 01:50] VITALS: BP 86/43; PULSE 102; RESP 20; TEMP 100.3; O2SAT 97
[2024-07-31] MEDS: SODIUM CHLORIDE 0.9% 1,000 ML IV ONE (02:15)
[2024-07-31 05:01] VITALS: BP 132/88; PULSE 80; RESP 18; TEMP 98.5; O2SAT 95
[2024-07-31 08:32] VITALS: BP 132/94; PULSE 91; RESP 18; TEMP 98.3; O2SAT 98
[2024-07-31] MEDS: *CLINICAL-MEROPENEM DOSING CLINICAL ONE (08:42)
[2024-07-31] MEDS ORDERED: MERO1VIA27 IV (09:54)
[2024-07-31] MEDS: MEROPENEM 1 GM in SODIUM CHLORIDE 0.9% 100 ML IV SCH (10:04)
[2024-07-31 15:25] VITALS: BP 127/77; PULSE 89; RESP 18; TEMP 98; O2SAT 95
[2024-07-31 20:13] VITALS: BP 124/79; PULSE 94; RESP 18; TEMP 98.7; O2SAT 100
[2024-08-01 04:03] VITALS: BP 127/93; PULSE 96; RESP 18; TEMP 99.1; O2SAT 100
[2024-08-01 08:06] LABS: BASOPHILS % (AUTO) 0.7 % (0.0-2.0); EOSINOPHILS % (AUTO) 4.8 % (1.0-6.0); HEMATOCRIT 30.6 % (36-46); HEMOGLOBIN 9.8 g/dL (12.0-16.0); LYMPHOCYTES # (AUTO) 2.2 K/uL (1.0-4.8); LYMPHOCYTES % (AUTO) 28.8 % (22.0-44.0); MEAN CORPUSCULAR HEMOGLOBIN 26.7 pg (26.0-34.0); MEAN CORPUSCULAR VOLUME 84 fL (80-100); MONOCYTES # (AUTO) 0.7 K/uL (0.1-1.0); MONOCYTES % (AUTO) 9.6 % (2.0-9.0); NEUTROPHILS # (AUTO) 4.3 K/uL (1.8-7.7); NEUTROPHILS % (AUTO) 56.1 % (40.0-70.0); PLATELET COUNT (AUTO) 357 K/uL (150-450); RED BLOOD CELL COUNT(AUTO) 3.66 MIL/uL (4.00-5.20); RED CELL DISTRIBUTION WIDTH 16.5 % (11.5-14.5); WHITE BLOOD COUNT (AUTO) 7.6 K/uL (4.5-11.0)
[2024-08-01 08:17] VITALS: BP 123/82; PULSE 88; RESP 19; TEMP 98.4; O2SAT 96
[2024-08-01 08:17] LABS: ANION GAP 10 mmol/L (8-16); CALCIUM, TOTAL 8.5 mg/dL (8.8-10.5); CARBON DIOXIDE 24 mmol/L (22-29); CHLORIDE 101 mmol/L (98-107); CREATININE 0.53 mg/dL (0.60-1.30); GLOMERULAR FILTR. RATE CALC > 60 mL/min (>60); GLUCOSE,RANDOM 81 mg/dL (70-110); SODIUM SERUM 135 mmol/L (136-145); UREA NITROGEN, BLOOD 6 mg/dL (7-18)
[2024-08-01] MEDS ORDERED: SODIUM CHLORIDE 0.9% 500 ML IV ONE (09:58)
[2024-08-01 16:45] VITALS: BP 141/91; PULSE 84; RESP 18; TEMP 98.4; O2SAT 98
[2024-08-01 20:31] VITALS: BP 110/68; PULSE 93; RESP 18; TEMP 98.5; O2SAT 96
[2024-08-01] MEDS: CIPROFLOXACIN HCL 500 MG TABLET PO SCH (20:52)
[2024-08-02 04:55] VITALS: BP 137/90; PULSE 77; RESP 20; TEMP 98.1; O2SAT 98
[2024-08-02 08:08] VITALS: BP 135/95; PULSE 70; RESP 19; TEMP 97.7; O2SAT 98
[2024-08-02 20:00] VITALS: BP 100/70; PULSE 87; RESP 18; TEMP 98; O2SAT 100
[2024-08-02] MEDS: FAMOTIDINE 20 MG TABLET PO PRN (20:16)
[2024-08-03 05:24] VITALS: BP 112/65; PULSE 80; RESP 18; TEMP 98.2; O2SAT 99
[2024-08-03 10:50] VITALS: BP 106/66; PULSE 90; RESP 18; TEMP 97.7; O2SAT 98
[2024-08-03] MEDS ORDERED: CIPR500T10 PO (14:14)
[2024-08-09] MEDS ORDERED: ERGOCALCIFEROL (VIT D2) 50,000 UNITS [1,250 MCG] CAPSULE PO SCH (09:00)
== END 2024-08-03 17:20 | disposition home health service (06) | DRG 872 ==
LOC: EMS 15:01 → ICUN 22:24 → 5S 22:25 → 6N 07-29 13:55 → 4E 07-29 18:20
PROVIDERS: ADMIT Hospitalist; ATTEND Hospitalist
PROC: 05HD33Z Insertion of Infusion Device into Right Cephalic Vein, Percutaneous Approach (ICD-10-PCS; principal; 2024-07-31)
DX: A41.9 Sepsis, unspecified organism (principal); Z68.43 Body mass index [BMI] 50.0-59.9, adult; N39.0 Urinary tract infection, site not specified; G82.20 Paraplegia, unspecified; E78.5 Hyperlipidemia, unspecified; N31.9 Neuromuscular dysfunction of bladder, unspecified; F41.9 Anxiety disorder, unspecified; K21.9 Gastro-esophageal reflux disease without esophagitis; G62.9 Polyneuropathy, unspecified; Z20.822 Contact with and (suspected) exposure to COVID-19; Z79.01 Long term (current) use of anticoagulants; Z79.899 Other long term (current) drug therapy; B96.1 Klebsiella pneumoniae [K. pneumoniae] as the cause of diseases classified elsewhere; B96.5 Pseudomonas (aeruginosa) (mallei) (pseudomallei) as the cause of diseases classified elsewhere; E66.01 Morbid (severe) obesity due to excess calories
CPT/HCPCS: 36245; 36569; 71045; 76937; 80048; 80053; 81001; 81002; 83605; 83735; 83880; 84145; 84484; 84702; 85025; 85610; 87040; 87086; 87186; 87804; 93005; 94640; 99285; C9113; G0378; J0131; J0696; J2185; J2543; J7030; J7040; J7050; 36415-L1; 36415-TC